=== PATIENT | female | born 1955 | race Caucasian/White ===

== ENCOUNTER 2021-04-19 16:35 | Emergency (ER) | payer MEDICAID ==
[~2021-04-19] VITALS: Ht 170.2 cm; Wt 70.8 kg
[2021-04-19] MEDS ORDERED: HYDROCODONE/APAP 5-325MG TABLET PO ONE (17:45)
[2021-04-19 17:51] LABS: HEMATOCRIT 39.2 % (31.2-41.9); MEAN CORPUSCULAR HEMOGLOBIN 30.9 uug (24.7-32.8); MEAN CORPUSCULAR VOLUME 89.3 fL (75.5-95.3); PLATELET COUNT (AUTO) 288 K/uL (179-408)
[2021-04-19 18:01] LABS: *BILIRUBIN,URIN NEGATIVE (NEGATIVE); *BLOOD, URINE NEGATIVE (NEGATIVE); *CLARITY,URINE CLEAR (CLEAR); *COLOR,URINE YELLOW (YELLOW); *KETONES,URINE NEGATIVE (NEGATIVE); *UROBILINOGEN,URINE 0.2 E.U./dl (NORMAL); LEUKOCYTE ESTERASE ,URINE NEGATIVE (NEGATIVE); NITRITE, URINE NEGATIVE (NEGATIVE); UGLUCOSE NEGATIVE (NEGATIVE)
[2021-04-19 18:08] LABS: CREATININE 0.8 mg/dL (0.6-1.3); POTASSIUM 4.2 mmol/L (3.5-5.1)
[2021-04-19 18:14] LABS: BILIRUBIN,DIRECT 0.1 mg/dL (0.0-0.2); BILIRUBIN,TOTAL 0.3 mg/dL (0.2-1.0); TOTAL PROTEIN, SERUM 7.3 g/dL (6.4-8.2)
[2021-04-19] MEDS ORDERED: MAG HYDROX/AL HYDROX/SIMETH 30 ML LIQUID UDC PO ONE (18:30)
[2021-04-19] MEDS ORDERED: LIDOCAINE VISCUS 2% 15 ML UDC MM ONE (18:30)
[2021-04-19] MEDS ORDERED: PANTOPRAZOLE SODIUM 40 MG TABLET.DR PO ONE ×2 (18:30→18:54)
[2021-04-19] MEDS ORDERED: OMEP40CA21 PO (18:31)
[2021-04-19] MEDS ORDERED: HYDROCODONE/APAP 5-325MG TABLET ONE (18:54)
[2021-04-19] MEDS ORDERED: LIDOCAINE VISCUS 2% 15 ML UDC ONE (18:54)
[2021-04-19] MEDS ORDERED: MAG HYDROX/AL HYDROX/SIMETH 30 ML LIQUID UDC ONE (18:54)
--- NOTE | 2021-04-19 18:55 | NUR ---
pt given d/c instructions, pt verbalized understanding.
== END 2021-04-19 19:01 | disposition home or self-care (01) ==
LOC: ER 16:39
DX: K29.70 Gastritis, unspecified, without bleeding (principal); R00.1 Bradycardia, unspecified
CPT/HCPCS: 36415; 70030-TC; 71045; 83690; 85025; 93005; A4663